=== PATIENT | male | born 1955 | race Caucasian/White ===

== ENCOUNTER 2016-12-28 05:58 | Day surgery (SDC) | payer OTHER ==
[2016-12-28] VITALS (20 sets, daily range): BP systolic 103–157; BP diastolic 65–81; PULSE 76–90; RESP 12–23; Ht 165.1 cm; Wt 85.0 kg
[~2016-12-28] VITALS: Ht 165.1 cm; Wt 85.0 kg
[2016-12-28] MEDS ORDERED: OMEP-28 PO (06:44)
[2016-12-28] MEDS ORDERED: LANT3I SC (06:44)
[2016-12-28] MEDS ORDERED: ATOR80TA75 PO (06:44)
[2016-12-28] MEDS ORDERED: METO25TA7 PO (06:44)
[2016-12-28] MEDS ORDERED: ASPI81TA3 PO (06:44)
[2016-12-28] MEDS ORDERED: HYDR25TA6 PO (06:44)
[2016-12-28] MEDS ORDERED: BENA40TA41 PO (06:44)
[2016-12-28 06:52] LABS: BASOPHIL # 0.1 10^3/ul (0.0-0.1); BASOPHILS % 0.7 % (0.0-2.0); EOSINOPHILS # 0.2 10^3/ul (0.0-0.5); EOSINOPHILS % 2.7 % (0.0-7.0); HEMATOCRIT 44.7 % (42.0-52.0); HEMOGLOBIN 15.2 g/dl (14.0-18.0); LYMPHOCYTES # 2.4 10^3/ul (0.8-2.9); LYMPHOCYTES % 31.5 % (15.0-51.0); MEAN CORPUSCULAR HEMOGLOBIN 30.5 pg (29.0-33.0); MEAN CORPUSCULAR HGB CONC 34.1 g/dl (32.0-37.0); MEAN CORPUSCULAR VOLUME 89.3 fl (82.0-101.0); MEAN PLATELET VOLUME 8.4 fl (7.4-10.4); MONOCYTE # 0.5 10^3/ul (0.3-0.9); NEUTROPHIL # 4.4 10^3/ul (1.6-7.5); NEUTROPHILS % 58.1 % (39.0-77.0); PLATELET COUNT 234 10^3/UL (140-440); RED CELL DISTRIBUTION WIDTH 12.8 % (11.5-14.5); UNCORRECTED WBC 7.5 10^3/ul (4.8-10.8); WHITE BLOOD COUNT 7.5 10^3/ul (4.8-10.8)
[2016-12-28 07:01] LABS: POTASSIUM 3.6 mmol/L (3.5-5.1)
[2016-12-28 07:07] LABS: INR 0.88; PROTIME 11.9 Sec (12.2-14.2); PT RATIO 0.9
[2016-12-28 07:08] LABS: PARTIAL THROMBOPLASTIN TIME 27.5 Sec (25.0-35.0)
[2016-12-28 07:16] LABS: CONDITION 1
[2016-12-28 07:27] LABS: CALCIUM 9.2 mg/dl (8.4-10.2); CREATININE 0.79 mg/dl (0.61-1.24)
[2016-12-28] MEDS ORDERED: NITROGLYCERIN (IC) 100 MCG/ML INJ ONE (08:22)
[2016-12-28] MEDS ORDERED: MIDAZOLAM 1 MG/ML 2 ML INJ ONE (08:22)
[2016-12-28] MEDS ORDERED: IODIXANOL LOCM 100 ML BTL ONE (08:22)
[2016-12-28] MEDS ORDERED: HEPARIN 1000 UNITS/ML 10 ML INJ ONE (08:22)
[2016-12-28] MEDS ORDERED: VERAPAMIL 5 MG INJ ONE (08:22)
[2016-12-28] MEDS ORDERED: LIDOCAINE 1% (MDV) 20 ML INJ ONE (08:22)
[2016-12-28] MEDS ORDERED: IODIXANOL LOCM 50 ML BTL ONE (08:22)
[2016-12-28] MEDS ORDERED: FENTAnyl 50 MCG/ML VIAL ONE (08:23)
[2016-12-28] MEDS ORDERED: SOD CHLORIDE 0.9% 1,000 ML IV SCH (09:57)
[2016-12-28] MEDS ORDERED: CLOP75TA27 PO (09:59)
[2016-12-28] MEDS ORDERED: CILO50TA PO (09:59)
[2016-12-28] MEDS ORDERED: ACETAMINOPHEN 325 MG TAB PO PRN (10:00)
[2016-12-28] MEDS ORDERED: HOLD all METFORMIN and METFORMIN CONTAINING medications for 48 hours post procedure. Chec XX ONE (10:00)
--- NOTE | 2016-12-28 10:00 | PDOCDIS ---
Discharge Instructions CONDITION Patient Condition: Good HOME CARE INSTRUCTIONS: Diet Instructions: Low Fat /Cholesterol ACTIVITY: Activity Restrictions: Avoid heavy lifting (with left arm x 3 days) Do not Drive (x 1 day) OTHER ORDERS: Other Orders: Hold metformin x 3 days Alberto Guerrier DO Dec 28, 2016 10:00
--- NOTE | 2016-12-28 12:09 | CARRPT ---
DATE OF PROCEDURE: 12/28/2016 PROCEDURE: 1. Distal abdominal aortogram with bilateral lower extremity runoff. 2. Second order catheter placement with selective left and right lower extremity angiogram. 3. Left radial artery approach. PATIENT HISTORY: This is a 61-year-old male who presents with lifestyle-limiting claudication, abno rmal ABIs, and lower extremity arterial ultrasound. DESCRIPTION OF PROCEDURE: The patient was brought to the clinical laboratory service teacher holding area after informed conse nt. The patient was prepped and draped as per protocol. Left radial access was obtained and a 5-Fr ench sheath was placed in the left radial artery. A 5-Chadian pigtail was taken down to the distal a bdominal aorta. Distal abdominal aortogram was performed as well as bilateral lower extremity runof f. Given the severe disease noted in the bilateral lower extremities, we did selective angiograms o f both lower extremities. We used a glide catheter as well as a Glidewire to go down to the left co mmon femoral first. Angiogram was done of the left lower extremity. We next switched over to the r ight common femoral with a glide catheter, and angiogram was performed. All catheters and wires wer e removed. There were no immediate complications. FINDINGS: 1. Distal abdominal aorta with no significant disease. 2. Left common iliac and external iliac with no significant disease. 3. Right common iliac and external iliac with no significant disease. 4. Bilateral common femorals with no significant disease. 5. Left SFA with a mid 20% stenosis and a distal 20% stenosis. 6. Left popliteal with 20% diffuse stenosis. 7. Left below the knee with 99% stenosis prior to the trifurcation. 8. The anterior tibial with 90% ostial stenosis and is patent down to above the ankle with a focal 90% stenosis. 9. The peroneal is severely diffusely diseased and subtotally occluded. 10. Posterior tibial is seen via collaterals and is a small vessel, and diffusely diseased. 11. Right SFA with a mid 30% stenosis and a distal 50% stenosis. 12. Right popliteal with a mid 40% stenosis. 13. Anterior tibial is occluded in the proximal portion. Before the bifurcation of the peroneal an d PT there is an 80% diffuse stenosis. The PT is occluded proximally. 14. The peroneal was a proximal 90% stenosis and mid 30% stenosis. The AT does reconstitute distal ly via collaterals. DIAGNOSIS: 1. Severe peripheral arterial disease. 2. Lifestyle limiting claudication. COMPLICATIONS: None. ESTIMATED BLOOD LOSS: Minimal. RECOMMENDATIONS: Aggressive medical management with proper diabetes and hypertension control. I wo uld start the patient on Plavix as well as Pletal, given normal ejection fraction. If patient is st ill symptomatic, would consider vascular surgery evaluation for possible peripheral bypass. Would c onsider endovascular intervention only if the patient remains symptomatic on maximal medical therapy and unable to fix this via a surgical approach. Findings were discussed with the patient and famil y at bedside in detail. Dictated By: NANDA ATWOOD/MONTSERRAT Conf#: [id number] DID#: [id number]
--- NOTE | 2016-12-28 14:43 | RADRPT ---
Vent Rate: 88 bpm RR Interval: 0 msec MO Interval: 156 msec QRS Duration: 82 msec QT Interval: 394 msec QTC Interval: 476 msec P-R-T [place]: 45 - 40 - 53 degrees Sinus rhythm with premature atrial complexes with aberrant conduction Nonspecific ST and T wave abnormality Prolonged QT Abnormal ECG Electronically Signed By: Alberto Guerrier [id number]
--- NOTE | 2016-12-29 09:30 | RADRPT ---
PROCEDURE: Bilateral lower extremity venous mapping. CLINICAL INDICATION: Preoperative for CABG. TECHNIQUE: The greater saphenous vein was evaluated bilaterally with ultrasound in the axial and s agittal planes. Diameter of the veins were determined as indicated below. COMPARISON: No prior studies are available for comparison. FINDINGS: Right greater saphenous vein: At groin: 0.48 cm. Upper thigh: 0.29 cm. Mid thigh: 0.20 cm. Lower thigh: 0.23 cm. At knee: 0.28 cm. Upper calf: 0.27 cm. Mid calf: 0.23 cm. Ankle: 0.20 cm. Left greater saphenous vein: At groin: 0.57 cm. Upper thigh: Not visualized. Mid thigh: Not visualized. Lower thigh: Not visualized. At knee: Not visualized. Upper calf: 0.29 cm. Mid calf: 0.24 cm. Ankle: 0.25 cm. The visualized portions of the greater saphenous veins demonstrate normal compressibility with no th rombus or occlusion. IMPRESSION: 1. Diameter of greater saphenous veins as indicated above. 2. No thrombosis visualized. 3. The left greater saphenous vein in the thigh is not visualized. RPTAT: QQ .Beto Sotelo MD, MD Date Time Electronically viewed and signed by .Beto Sotelo MD, on 12/29/2016 09:30 .R/
== END 2016-12-28 13:20 | disposition home or self-care (01) ==
LOC: SDS 05:58 → CCL 06:01 → SDS 13:20
PROVIDERS: ATTEND Internal Medicine Cardiovascular Disease
DX: I73.9 Peripheral vascular disease, unspecified (principal); I10 Essential (primary) hypertension; E11.9 Type 2 diabetes mellitus without complications; E78.5 Hyperlipidemia, unspecified; I25.10 Atherosclerotic heart disease of native coronary artery without angina pectoris
CPT/HCPCS: 36246; 75716; 80048; 82962; 85025; 85610; 85730; 93005; 93970; C1769; C1887; C1894; J1644; J2250; J3010; Q9967; Z7610